=== PATIENT | male | born 1960 | race African-American/Black ===

== ENCOUNTER 2017-08-05 14:32 | Emergency (ER) | payer OTHER, SELFPAY ==
[2017-08-05] MEDS ORDERED: Acetaminophen 500 MG TAB ONE (15:09)
[2017-08-05] MEDS ORDERED: Ibuprofen 200 MG TAB ONE (15:59)
--- NOTE | 2017-08-05 17:02 | RAD ---
CHEST ONE VIEW: History: Fever. Comparison: 03-25-13 FINDINGS: Lungs are clear. No pneumothorax or effusion. Cardiomediastinal silhouette and mediastinal contours are within normal limits. IMPRESSION: No intrathoracic abnormality. POS: [facility]
== END 2017-08-05 17:03 | disposition home or self-care (01) ==
LOC: ERS 14:32
DX: J11.1 Influenza due to unidentified influenza virus with other respiratory manifestations (principal); R09.1 Pleurisy; E11.9 Type 2 diabetes mellitus without complications; I10 Essential (primary) hypertension
CPT/HCPCS: 71045

== ENCOUNTER 2017-08-08 16:50 | Emergency (ER) | payer SELFPAY | END 2017-08-08 17:34 | disposition home or self-care (01) | LOC: ERS 16:50 | DX: R55 Syncope and collapse (principal); J11.1 Influenza due to unidentified influenza virus with other respiratory manifestations; E11.9 Type 2 diabetes mellitus without complications; I10 Essential (primary) hypertension | CPT/HCPCS: 93005 ==

== ENCOUNTER 2017-12-28 17:36 | Emergency (ER) | payer SELFPAY ==
[2017-12-28 18:23] LABS: #Basophils 0.1 thou/uL (0.0-0.2); #Lymphocytes 1.4 thou/uL (1.20-3.40); #Monocytes 0.6 thou/uL (0.11-0.59); #Neutrophils 5.8 thou/uL (1.40-6.50); %Basophils 1.2 % (0.0-1.0); %Eosinophils 0.4 % (0.0-10.0); %Lymphocytes 17.9 % (21.0-51.0); %Monocytes 7.5 % (0.0-10.0); Hemoglobin 11.6 g/dL (14.0-18.0); Mean Corpuscular HGB CONC 31.5 g/dL (32.0-36.0); Mean Corpuscular Hemoglobin 24.2 pg (27.0-31.0); Mean Platelet Volume 9.4 fL (7.4-10.4); Platelet Count 280 thou/uL (130-400); RBC Distribution Width 16.6 % (11.5-14.5); Red Blood Cell (RBC) Count 4.79 mill/uL (4.70-6.10); White Blood Cell (WBC) Count 7.9 thou/uL (4.8-10.8)
[2017-12-28 18:39] LABS: ALT (SGPT) 18 U/L (8-55); AST (SGOT) 16 U/L (5-34); Albumin 3.6 g/dL (3.5-5.0); Alkaline Phosphatase 60 U/L (40-150); Anion Gap 16 mmol/L (10-20); BUN (Urea Nitrogen) 16 mg/dL (8.4-25.7); Bilirubin, Total 0.3 mg/dL (0.2-1.2); CK (CPK) 162 U/L (30-200); Calc. Creatinine Clearance 0 mL/min (70-130); Calcium 8.6 mg/dL (7.8-10.44); Carbon Dioxide 21 mmol/L (22-29); Chloride 105 mmol/L (98-107); Estimated GFR-MDRD 61; Globulin 3.4 g/dL (2.4-3.5); Glucose 285 mg/dL (70-105); Potassium 4.5 mmol/L (3.5-5.1); Sodium 137 mmol/L (136-145)
[2017-12-28 18:50] LABS: CKMB 1.4 ng/mL (0-6.6); Troponin I Less than 0.010 ng/mL (< 0.028)
== END 2017-12-28 20:44 | disposition home or self-care (01) ==
LOC: ERS 17:36
DX: E11.65 Type 2 diabetes mellitus with hyperglycemia (principal); R55 Syncope and collapse; I10 Essential (primary) hypertension
CPT/HCPCS: 36415; 80053; 82553; 84484; 85025; 93005

== ENCOUNTER 2019-11-24 09:37 | Observation (INO) | payer SELFPAY ==
[2019-11-24 10:11] LABS: #Basophils 0.1 thou/uL (0.0-0.2); #Eosinphils 0.1 thou/uL (0.0-0.7); #Lymphocytes 1.8 thou/uL (1.20-3.40); #Monocytes 0.5 thou/uL (0.11-0.59); #Neutrophils 4.5 thou/uL (1.40-6.50); %Lymphocytes 26.3 % (21.0-51.0); %Monocytes 7.5 % (0.0-10.0); %Neutrophils 64.2 % (42.0-75.0); Hemoglobin 13.3 g/dL (14.0-18.0); Mean Corpuscular HGB CONC 32.4 g/dL (32.0-36.0); Mean Corpuscular Hemoglobin 27.9 pg (27.0-31.0); Mean Platelet Volume 9.3 fL (7.4-10.4); Platelet Count 238 thou/uL (130-400); RBC Distribution Width 13.3 % (11.5-14.5); Red Blood Cell (RBC) Count 4.77 mill/uL (4.70-6.10)
[2019-11-24 10:32] LABS: ALT (SGPT) 18 U/L (8-55); AST (SGOT) 12 U/L (5-34); Alkaline Phosphatase 84 U/L (40-110); Anion Gap 12 mmol/L (10-20); BUN (Urea Nitrogen) 19 mg/dL (8.4-25.7); Bilirubin, Total 0.2 mg/dL (0.2-1.2); CK (CPK) 133 U/L (30-200); Calc. Creatinine Clearance 0 mL/min (70-130); Calcium 9.1 mg/dL (7.8-10.44); Carbon Dioxide 27 mmol/L (22-29); Chloride 102 mmol/L (98-107); Estimated GFR-MDRD 69; Globulin 3.4 g/dL (2.4-3.5); Glucose 280 mg/dL (70-105); Lipase 30 U/L (8-78); Potassium 3.8 mmol/L (3.5-5.1); Protein, Total 7.4 g/dL (6.0-8.3); Sodium 137 mmol/L (136-145)
--- NOTE | 2019-11-24 11:01 | RAD ---
PORTABLE CHEST 1 VIEW: DATE: 11/24/2019. TIME: 10:02 AM. HISTORY: Chest pain. COMPARISON: 08/05/2017. FINDINGS: The heart size is normal. The lungs are expanded without lobar consolidation, pneumothoraces, or ple ural effusions. Here are degenerative changes in the acromioclavicular joints. IMPRESSION: No radiographic evidence of acute cardiopulmonary process;. POS: [facility]
[2019-11-24] MEDS ORDERED: Nitroglycerin 2% Ointment 1 INCH/1 GM Packet ONE (13:36)
[2019-11-24] MEDS ORDERED: Aspirin Chewable 81 MG TAB ONE (13:36)
[2019-11-24] MEDS ORDERED: HYDROcodone/Acetaminophen 5/325 mg Tablet PO PRN (13:58)
[2019-11-24] MEDS ORDERED: Guaifenesin DM 100-10/5 ML UDCUP PO PRN (13:58)
[2019-11-24] MEDS ORDERED: Senokot S 8.6-50 MG TAB PO PRN (13:58)
[2019-11-24] MEDS ORDERED: Calcium Carbonate 500 MG ChewTAB PO PRN (13:58)
[2019-11-24] MEDS ORDERED: HumaLOG 300 UNITS/3 ML VIAL SC PRN (13:58)
[2019-11-24] MEDS ORDERED: Bisacodyl 10 MG SUPP PR PRN (13:58)
[2019-11-24] MEDS ORDERED: Acetaminophen 325 MG TAB PO PRN (13:58)
[2019-11-24] MEDS ORDERED: Nitroglycerin 0.4 MG TAB (25 Tab Bottle) PO PRN (13:58)
[2019-11-24] MEDS ORDERED: Dextrose 5% in Water 1,000 ML IV PRN (13:58)
[2019-11-24] MEDS ORDERED: Dextrose 50% Abboject 50 ML SYRINGE SLOW IVP PRN (13:58)
[2019-11-24] MEDS ORDERED: Ondansetron PF 4 MG/2 ML Vial IVP PRN (13:58)
--- NOTE | 2019-11-24 14:28 | HP ---
REASON FOR ADMISSION: Chest pain. HISTORY OF PRESENTING ILLNESS: The patient gives history of developing chest pain beneath his left breast area. This was worse on any movement, cough, and sneezing. No cough or expectoration. No history of fever. No exposure to COVID-19. No nausea or vomiting. No prior history of chest pain. The chest pain was 4 to 5/ 10 in intensity and lasted until this morning. PAST MEDICAL AND SURGICAL HISTORY: Diabetes mellitus type 2, hypertension, dyslipidemia, back surgery, and left knee surgery. CURRENT MEDICATIONS: None. The patient states he cannot afford medications. ALLERGIES: NO KNOWN DRUG ALLERGIES. PERSONAL HISTORY: Does not abuse alcohol or drugs. No history of smoking. He used to work in [employer] industry, got laid off 7 months back. FAMILY HISTORY: Both parents in their 70s. Father of natural causes. Mother of kidney cancer. The patient is living with his sister at present. REVIEW OF SYSTEMS: CONSTITUTIONAL: Negative for weight loss or gain, ability to conduct usual activities. SKIN: Negative for rash, itching. EYES: Negative for double vision, pain. ENT/MOUTH: Negative for nose bleeding, neck stiffness, pain, tenderness. CARDIOVASCULAR: Negative for palpitations, dyspnea on exertion, orthopnea. RESPIRATORY: Negative for shortness of breath, wheezing, cough, hemoptysis, fever or night sweats. GASTROINTESTINAL: Negative for poor appetite, abdominal pain, heartburn, nausea , vomiting, constipation, or diarrhea. GENITOURINARY: Negative for urgency, frequency, dysuria, nocturia. MUSCULOSKELETAL: Negative for pain, swelling. NEUROLOGIC/PSYCHIATRIC: Negative for anxiety, depression. ALLERGY/IMMUNOLOGIC: Negative for skin rash, bleeding tendency. PHYSICAL EXAMINATION: GENERAL: The patient is a 59-year-old male, who is currently not in any acute distress. VITAL SIGNS: Blood pressure 160/90, pulse 84 per minute, respiratory rate 20 per minute, temperature 98.2 degrees Fahrenheit, and saturating 98% on room air. NECK: Supple. No elevated JVD. HEENT: Eyes; extraocular muscles intact. Pupils reacting to light. Oral cavity, mucous membranes are moist. No exudates or congestion. CARDIOVASCULAR SYSTEM: S1 and S2 heard. Regular rhythm. RESPIRATORY: Air entry 2+ bilateral. No rales or rhonchi. ABDOMEN: Soft. Bowel sounds heard. No tenderness, rigidity, or guarding. EXTREMITIES: No peripheral edema or calf tenderness. VASCULAR SYSTEM: Peripheral pulses 1+ bilateral. No ischemic ulcerations or gangrene. CENTRAL NERVOUS SYSTEM: No gross focal motor deficits noted. The patient is alert, awake, and oriented well. PSYCHIATRIC SYSTEM: The patient's mood is euthymic. No hallucinations or delusions. LABORATORY DATA: EKG done shows sinus rhythm at 84 beats per minute with the signs of mild LVH seen. Chest x-ray done shows no acute cardiopulmonary abnormalities. White count of 7, H and H 13 and 41, platelet count 238 with 64% neutrophils, MCV is 86. BUN 19, creatinine 1.2, serum glucose 280. Liver enzymes within normal limits. Troponin x1 negative. Albumin is 4.0. Chest x-ray done shows no acute cardiopulmonary abnormalities. CLINICAL IMPRESSION AND PLAN: The patient will be under observation on telemetry for atypical chest pain to rule out acute coronary syndrome. The patient has multiple risk factors for acute coronary syndrome. We will obtain one more set of troponin and a nuclear stress test in the morning. We will place him on Lopressor low dose along with lisinopril 5 mg daily. He will also be on glipizide 5 mg twice daily for diabetes. Full-dose aspirin for now. Lipid profile in the morning. We will continue to closely monitor him for any hemodynamic compromise. He has uncontrolled hypertension due to not being on any medications and cautiously add medicines based on clinical response. Job ID: [id number] [facility]
[2019-11-24 16:29] VITALS: BMI 27.2
[2019-11-24] MEDS ORDERED: hydrALAZINE 20 MG/ML VIAL SLOW IVP PRN (16:59)
[2019-11-24] MEDS ORDERED: cloNIDine 0.1 MG TAB PO PRN (16:59)
[2019-11-24] MEDS: HumaLOG 300 UNITS/3 ML VIAL SC PRN (17:16)
[2019-11-24] MEDS: glipiZIDE 5 MG TAB PO SCH (17:16)
[2019-11-24] MEDS: Famotidine 20 MG TAB PO SCH (20:36)
[2019-11-24] MEDS: Nitroglycerin 2% Ointment 1 INCH/1 GM Packet TOP SCH (20:36)
[2019-11-24] MEDS: Metoprolol Tartrate 25 MG TAB PO SCH (20:36)
[2019-11-25 04:40] LABS: #Basophils 0.1 thou/uL (0.0-0.2); #Eosinphils 0.1 thou/uL (0.0-0.7); #Monocytes 0.5 thou/uL (0.11-0.59); #Neutrophils 3.2 thou/uL (1.40-6.50); %Basophils 1.6 % (0.0-1.0); %Eosinophils 1.3 % (0.0-10.0); %Lymphocytes 34.3 % (21.0-51.0); %Monocytes 8.7 % (0.0-10.0); %Neutrophils 54.1 % (42.0-75.0); Hemoglobin 12.4 g/dL (14.0-18.0); Mean Corpuscular HGB CONC 32.1 g/dL (32.0-36.0); Mean Corpuscular Hemoglobin 28.4 pg (27.0-31.0); Mean Corpuscular Volume 88.3 fL (78.0-98.0); Mean Platelet Volume 9.6 fL (7.4-10.4); Platelet Count 222 thou/uL (130-400); RBC Distribution Width 13.4 % (11.5-14.5); Red Blood Cell (RBC) Count 4.39 mill/uL (4.70-6.10); White Blood Cell (WBC) Count 5.8 thou/uL (4.8-10.8)
[2019-11-25 05:03] LABS: Anion Gap 15 mmol/L (10-20); BUN (Urea Nitrogen) 20 mg/dL (8.4-25.7); Calc. Creatinine Clearance 86 mL/min (70-130); Calcium 8.5 mg/dL (7.8-10.44); Carbon Dioxide 23 mmol/L (22-29); Cardiac Risk 6.5 (Less than 4.5); Chloride 103 mmol/L (98-107); Cholesterol 209 mg/dl (< 200 Desired); Estimated GFR-MDRD 74; Glucose 324 mg/dL (70-105); HDL Cholesterol 32 mg/dL (>60 Neg Risk); LDL Cholesterol, Calculated 117 mg/dL; Sodium 137 mmol/L (136-145); Triglycerides 299 mg/dL (Less than 150)
[2019-11-25] MEDS: Nitroglycerin 2% Ointment 1 INCH/1 GM Packet TOP SCH (07:22)
[2019-11-25] MEDS ORDERED: Lisinopril 5 MG TAB PO SCH (09:00)
[2019-11-25] MEDS ORDERED: Enoxaparin Sodium 40 MG/0.4 ML SYRINGE SC SCH (09:00)
[2019-11-25] MEDS ORDERED: Aspirin 325 mg Enteric Coated Tablet PO SCH (09:00)
[2019-11-25] MEDS ORDERED: ADENOSINE 60 MG/20 ML VIAL ONE (09:15)
[2019-11-25] MEDS: Metoprolol Tartrate 25 MG TAB PO SCH (10:38)
[2019-11-25] MEDS ORDERED: Metoprolol Tartrate 25 MG TAB PO SCH ×2 (10:45→21:00)
[2019-11-25] MEDS: Insulin Glargine 10 UNITS in Pre-Filled Syringe 1 EACH SC SCH ×2 (11:08→12:28)
[2019-11-25] MEDS: glipiZIDE 5 MG TAB PO SCH (11:08)
[2019-11-25 11:10] VITALS: BP 182/91; TEMP 97.7
[2019-11-25] MEDS: Famotidine 20 MG TAB PO SCH (11:11)
--- NOTE | 2019-11-25 12:13 | NM ---
CARDIAC SPECT: CLINICAL HISTORY: 59-year-old male with chest pain, hypertension, diabetes, and dyslipidemia. TECHNIQUE: A myocardial perfusion scan was performed using the single isotope one day protocol with technetium-9 9m sestamibi. 10 mCi were injected intravenously for the rest exam followed by 32 mCi for the stress exam. Pharmacologic stress with Adenosine was monitored and interpreted by Emery Jimenez. FINDINGS: Homogeneous tracer distribution is seen in the myocardial segments on stress and rest images without fixed or reversible defects. GATED SPECT LVEF: 50%. WALL MOTION EXAM: Normal. IMPRESSION: Normal myocardial perfusion scan. POS: [facility]
[2019-11-25] MEDS: HumaLOG 300 UNITS/3 ML VIAL SC PRN (12:28)
[2019-11-25] MEDS ORDERED: Atorvastatin Calcium 40 MG TAB PO SCH (21:00)
--- NOTE | 2019-11-26 09:52 | DIS ---
DATE OF ADMISSION: 11/24/2019 DATE OF DISCHARGE: 11/25/2019 DISCHARGE DISPOSITION: To home. PRIMARY DISCHARGE DIAGNOSES: Uncontrolled hypertension, uncontrolled diabetes mellitus type 2 being noncompliant with medication, chest pain, dyslipidemia. PROCEDURES DONE DURING HOSPITALIZATION: Chest x-ray done showed no acute cardiopulmonary process. Nuclear stress test done showed EF of 50%. Normal wall motion and normal myocardial perfusion scan. H and H 12 and 38, platelet count 222, MCV is 88 with white count of 5.8, BUN 20, creatinine 1.2. Total cholesterol 209, triglycerides 299, LDL 117, HDL 32. Troponin x2 negative. DISCHARGE MEDICATION: 1. Atorvastatin 40 mg p.o. at bedtime. 2. Glipizide 5 mg twice daily. 3. Lisinopril 5 mg daily. 4. Metoprolol tartrate 25 mg twice daily. ALLERGIES: NO KNOWN DRUG ALLERGIES. DISCHARGE PLAN: The patient to follow up with primary care physician at [facility] on 11/26/2019 at 1:30 p.m. BRIEF COURSE DURING HOSPITALIZATION: The patient initially came in with complaints of chest pain beneath the left breast area, which was more of a pleuritic nature from last 2 days prior to arrival. He also had uncontrolled hypertension and diabetes mellitus type 2. He has not been on any medications due to no insurance and no financial means for getting it. In view of this history, he was placed under observation on telemetry. Two sets of troponin were done, which were negative. Nuclear stress test done showed no evidence of reversible ischemia. He was placed on glipizide along with Lipitor and metoprolol and lisinopril. He has responded well to above measures. The patient has been advised to check fingerstick glucose twice daily along with pulse and blood pressure as well and record on a sheet to follow up with primary care physician for changes in his medication. Please note, I have seen and examined the patient on the day of discharge. Job ID: [id number] [facility]
== END 2019-11-25 15:33 | disposition home or self-care (01) ==
LOC: ERS 09:37 → 2NO 16:26
PROVIDERS: ADMIT Internal Medicine; ATTEND Internal Medicine
DX: R07.81 Pleurodynia (principal); I10 Essential (primary) hypertension; E11.9 Type 2 diabetes mellitus without complications; E78.5 Hyperlipidemia, unspecified; Z91.14 Patient's other noncompliance with medication regimen
CPT/HCPCS: 36415; 36416; 71045; 78452; 80048; 80053; 80061; 82550; 83690; 84484; 85025; 93005; 93017; 94760; A9500; G0378; J0153; J1815

== ENCOUNTER 2021-05-09 12:04 | Emergency (ER) | payer SELFPAY ==
[2021-05-09 12:41] LABS: #Basophils 0.1 thou/uL (0.0-0.2); #Eosinphils 0.1 thou/uL (0.0-0.7); #Lymphocytes 1.7 thou/uL (1.20-3.40); #Monocytes 0.6 thou/uL (0.11-0.59); #Neutrophils 6.4 thou/uL (1.40-6.50); %Basophils 1.5 % (0.0-1.0); %Eosinophils 0.6 % (0.0-10.0); %Lymphocytes 19.3 % (21.0-51.0); %Monocytes 6.2 % (0.0-10.0); %Neutrophils 72.5 % (42.0-75.0); Hemoglobin 15.6 g/dL (14.0-18.0); Mean Corpuscular HGB CONC 32.5 g/dL (32.0-36.0); Mean Corpuscular Volume 89.5 fL (78.0-98.0); Mean Platelet Volume 8.8 fL (7.4-10.4); Platelet Count 260 thou/uL (130-400); RBC Distribution Width 14.2 % (11.5-14.5); Red Blood Cell (RBC) Count 5.37 mill/uL (4.70-6.10); White Blood Cell (WBC) Count 8.9 thou/uL (4.8-10.8)
[2021-05-09 13:09] LABS: ALT (SGPT) 12 U/L (8-55); AST (SGOT) 12 U/L (5-34); Albumin 4.7 g/dL (3.4-4.8); Alkaline Phosphatase 80 U/L (40-110); Anion Gap 16 mmol/L (10-20); BUN (Urea Nitrogen) 16 mg/dL (8.4-25.7); Bilirubin, Total 0.6 mg/dL (0.2-1.2); Calc. Creatinine Clearance 0 mL/min (70-130); Calcium 9.7 mg/dL (7.8-10.44); Carbon Dioxide 27 mmol/L (23-31); Chloride 101 mmol/L (98-107); Globulin 3.7 g/dL (2.4-3.5); Glucose 119 mg/dL (80-115); Potassium 4.1 mmol/L (3.5-5.1); Protein, Total 8.4 g/dL (5.8-8.1); Sodium 140 mmol/L (136-145)
== END 2021-05-09 17:39 | disposition home or self-care (01) ==
LOC: ERS 12:04
DX: I10 Essential (primary) hypertension (principal); E11.9 Type 2 diabetes mellitus without complications; E78.00 Pure hypercholesterolemia, unspecified; Z79.899 Other long term (current) drug therapy; Z79.84 Long term (current) use of oral hypoglycemic drugs
CPT/HCPCS: 36415; 71045; 80053; 84484; 85025; 93005

== ENCOUNTER 2021-06-20 11:55 | Emergency (ER) | payer SELFPAY ==
[2021-06-20 12:43] LABS: #Eosinphils 0.1 thou/uL (0.0-0.7); #Lymphocytes 1.9 thou/uL (1.20-3.40); #Monocytes 0.5 thou/uL (0.11-0.59); #Neutrophils 4.1 thou/uL (1.40-6.50); %Basophils 0.7 % (0.0-1.0); %Monocytes 8.1 % (0.0-10.0); %Neutrophils 62.3 % (42.0-75.0); Hemoglobin 15.4 g/dL (14.0-18.0); Mean Corpuscular HGB CONC 32.2 g/dL (32.0-36.0); Mean Corpuscular Hemoglobin 29.4 pg (27.0-31.0); Mean Corpuscular Volume 91.3 fL (78.0-98.0); Mean Platelet Volume 8.5 fL (7.4-10.4); Platelet Count 304 thou/uL (130-400); RBC Distribution Width 13.6 % (11.5-14.5); Red Blood Cell (RBC) Count 5.26 mill/uL (4.70-6.10); White Blood Cell (WBC) Count 6.6 thou/uL (4.8-10.8)
[2021-06-20 13:01] LABS: ALT (SGPT) 19 U/L (8-55); AST (SGOT) 12 U/L (5-34); Albumin 4.3 g/dL (3.4-4.8); Alkaline Phosphatase 98 U/L (40-110); Anion Gap 12 mmol/L (10-20); BUN (Urea Nitrogen) 19 mg/dL (8.4-25.7); Bilirubin, Total 0.5 mg/dL (0.2-1.2); Calc. Creatinine Clearance 0 mL/min (70-130); Calcium 10.2 mg/dL (7.8-10.44); Carbon Dioxide 29 mmol/L (23-31); Chloride 102 mmol/L (98-107); Globulin 4.5 g/dL (2.4-3.5); Glucose 247 mg/dL (80-115); Potassium 4.2 mmol/L (3.5-5.1); Protein, Total 8.8 g/dL (5.8-8.1); Sodium 139 mmol/L (136-145)
[2021-06-20] MEDS ORDERED: Labetalol HCl 100 MG/20 ML VIAL ONE (14:46)
== END 2021-06-20 16:20 | disposition home or self-care (01) ==
LOC: ERS 11:55
DX: L97.529 Non-pressure chronic ulcer of other part of left foot with unspecified severity (principal); I10 Essential (primary) hypertension; E11.9 Type 2 diabetes mellitus without complications; E78.00 Pure hypercholesterolemia, unspecified; Z79.4 Long term (current) use of insulin; Z79.899 Other long term (current) drug therapy
CPT/HCPCS: 36415; 80053; 85025; 96374; 96376